=== PATIENT | female | born 1990 | race Caucasian/White ===

== ENCOUNTER 2019-01-24 11:26 | Emergency (ER) | payer OTHER, SELFPAY | END 2019-01-24 13:20 | disposition home or self-care (01) | LOC: ERS 11:26 | DX: K04.7 Periapical abscess without sinus (principal); K02.9 Dental caries, unspecified; J45.909 Unspecified asthma, uncomplicated | CPT/HCPCS: 99281 ==

== ENCOUNTER 2019-01-28 18:26 | Emergency (ER) | payer SELFPAY ==
[2019-01-28] MEDS ORDERED: Dexamethasone 4 MG TAB PO SCH (19:00)
== END 2019-01-28 20:08 | disposition home or self-care (01) ==
LOC: ERS 18:26
DX: J45.901 Unspecified asthma with (acute) exacerbation (principal)
CPT/HCPCS: 94640; J7620; J8540

== ENCOUNTER 2019-05-19 01:46 | Emergency (ER) | payer SELFPAY ==
[2019-05-19] MEDS ORDERED: Ondansetron ODT 4 MG TAB ONE (02:06)
== END 2019-05-19 03:02 | disposition home or self-care (01) ==
LOC: ERS 01:46
DX: R10.84 Generalized abdominal pain (principal); R11.2 Nausea with vomiting, unspecified; R19.7 Diarrhea, unspecified
CPT/HCPCS: 96372; J0500; Q0162

== ENCOUNTER 2020-03-11 03:21 | Emergency (ER) | payer SELFPAY | END 2020-03-11 04:30 | disposition home or self-care (01) | LOC: ERS 03:21 | DX: S61.210A Laceration without foreign body of right index finger without damage to nail, initial encounter (principal); J45.909 Unspecified asthma, uncomplicated; Z79.51 Long term (current) use of inhaled steroids; Z23 Encounter for immunization; W25.XXXA Contact with sharp glass, initial encounter | CPT/HCPCS: 12001; 90471 ==

== ENCOUNTER 2021-02-04 19:29 | Emergency (ER) | payer SELFPAY ==
[2021-02-05 13:05] LABS: SARS-CoV-2 PCR by NAA Not Detected (NotDetected)
== END 2021-02-04 21:18 | disposition home or self-care (01) ==
LOC: ERS 19:29
DX: R05 Cough (principal); R09.81 Nasal congestion; R50.9 Fever, unspecified; Z20.822 Contact with and (suspected) exposure to COVID-19
CPT/HCPCS: 71045; U0003; U0005

== ENCOUNTER 2021-07-01 14:27 | Emergency (ER) | payer SELFPAY ==
[~2021-07-01 14:27] MED LIST: Iopamidol-370 76% 500 ML 1 ML ONE
[2021-07-01] MEDS ORDERED: Morphine 4 MG/ML VIAL ONE (14:52)
[2021-07-01] MEDS ORDERED: Ondansetron PF 4 MG/2 ML Vial ONE ×2 (14:54→15:11)
[2021-07-01] MEDS ORDERED: Ketorolac Tromethamine 30 MG/ML VIAL ONE (15:10)
[2021-07-01 15:21] LABS: #Basophils 0.1 thou/uL (0.0-0.2); #Eosinphils 0.5 thou/uL (0.0-0.7); #Lymphocytes 3.9 thou/uL (1.20-3.40); #Monocytes 0.9 thou/uL (0.11-0.59); #Neutrophils 5.4 thou/uL (1.40-6.50); %Basophils 0.7 % (0.0-1.0); %Eosinophils 4.9 % (0.0-10.0); %Lymphocytes 35.8 % (21.0-51.0); %Monocytes 8.6 % (0.0-10.0); %Neutrophils 49.9 % (42.0-75.0); Hemoglobin 13.2 g/dL (12.0-16.0); Mean Corpuscular HGB CONC 33.3 g/dL (32.0-36.0); Mean Corpuscular Hemoglobin 26.3 pg (27.0-31.0); Mean Platelet Volume 6.7 fL (7.4-10.4); Platelet Count 486 thou/uL (130-400); RBC Distribution Width 13.1 % (11.5-14.5); Red Blood Cell (RBC) Count 5.01 mill/uL (4.20-5.40); White Blood Cell (WBC) Count 10.8 thou/uL (4.8-10.8)
[2021-07-01 15:26] LABS: Pregnancy Test - Urine (BHCG) Negative (Negative)
[2021-07-01 15:27] LABS: BHCG - Serum Negative (NEGATIVE); Pregs Control Background? CLEAR/WHITE (CLR/WHITE); Pregs Control Bar Appear? YES (CONTROL BAR)
[2021-07-01 15:27] LABS: Pregu Control Background? CLEAR/WHITE (CLR/WHITE); Pregu Control Bar Appear? YES (CONTROL BAR); Specific Gravity 1.027 (1.002-1.036)
[2021-07-01 15:30] LABS: Bacteria/HPF 2+ HPF (None Seen); Bilirubin Negative (Negative); Blood, Urine 1+ (Negative); Clarity Turbid (Clear); Glucose, Urine (Dipstick) Normal (Negative); Ketone, Urine Trace mg/dL (Negative); Leukocyte 75 Leu/uL (Negative); Mucous/LPF Rare LPF (<2+); Nitrite Negative (Negative); Protein, Urine (Dipstick) 20 mg/dL (Neg-Trace); Renal Epithelial 0-3 HPF (None Seen); Specific Gravity, Urine 1.027 (1.002-1.036); Urobilinogen Normal mg/dL (Less than 2); pH, Urine 5.5 (5.0-9.0)
[2021-07-01 15:41] LABS: ALT (SGPT) 13 U/L (8-55); AST (SGOT) 12 U/L (5-34); Albumin 4.2 g/dL (3.5-5.0); Alkaline Phosphatase 129 U/L (40-110); Anion Gap 15 mmol/L (10-20); BUN (Urea Nitrogen) 11 mg/dL (7.0-18.7); Bilirubin, Total 0.6 mg/dL (0.2-1.2); Calc. Creatinine Clearance 0 mL/min (70-130); Calcium 10.3 mg/dL (7.8-10.44); Carbon Dioxide 21 mmol/L (22-29); Chloride 105 mmol/L (98-107); Globulin 3.8 g/dL (2.4-3.5); Glucose 154 mg/dL (70-105); Lipase 13 U/L (8-78); Sodium 137 mmol/L (136-145)
== END 2021-07-01 17:30 | disposition home or self-care (01) ==
LOC: ERS 14:27
DX: N20.2 Calculus of kidney with calculus of ureter (principal); J45.909 Unspecified asthma, uncomplicated; Z79.899 Other long term (current) drug therapy
CPT/HCPCS: 36415; 74177; 80053; 81003; 81015; 81025; 83690; 84703; 85025; 96374; 96375; J1885; J2270; J2405; Q9967

== ENCOUNTER 2021-07-03 03:11 | Emergency (ER) | payer SELFPAY ==
[2021-07-03 03:48] LABS: Bacteria/HPF 1+ HPF (None Seen); Bilirubin Negative (Negative); Blood, Urine 2+ (Negative); Clarity Clear (Clear); Glucose, Urine (Dipstick) Normal (Negative); Ketone, Urine Negative (Negative); Leukocyte Negative Leu/uL (Negative); Mucous/LPF 2+ LPF (<2+); Nitrite Negative (Negative); Protein, Urine (Dipstick) Negative (Neg-Trace); Specific Gravity, Urine 1.016 (1.002-1.036); Squamous Epithelial 0-3 HPF (0-3); Urobilinogen Normal mg/dL (Less than 2); WBC/HPF 0-3 HPF (0-3)
[2021-07-03 03:49] LABS: Pregnancy Test - Urine (BHCG) Negative (Negative); Pregu Control Background? CLEAR/WHITE (CLR/WHITE); Pregu Control Bar Appear? YES (CONTROL BAR); Specific Gravity 1.016 (1.002-1.036)
[2021-07-03] MEDS ORDERED: Ketorolac Tromethamine 30 MG/ML VIAL ONE (04:14)
[2021-07-03] MEDS ORDERED: Ondansetron PF 4 MG/2 ML Vial ONE (04:14)
[2021-07-03 04:22] LABS: #Basophils 0.1 thou/uL (0.0-0.2); #Eosinphils 0.4 thou/uL (0.0-0.7); #Lymphocytes 1.9 thou/uL (1.20-3.40); #Monocytes 0.7 thou/uL (0.11-0.59); #Neutrophils 11.7 thou/uL (1.40-6.50); %Basophils 0.4 % (0.0-1.0); %Eosinophils 2.4 % (0.0-10.0); %Lymphocytes 12.8 % (21.0-51.0); %Monocytes 4.6 % (0.0-10.0); %Neutrophils 79.8 % (42.0-75.0); Hemoglobin 11.9 g/dL (12.0-16.0); Mean Corpuscular HGB CONC 32.3 g/dL (32.0-36.0); Mean Corpuscular Hemoglobin 25.8 pg (27.0-31.0); Mean Corpuscular Volume 79.9 fL (78.0-98.0); Mean Platelet Volume 6.9 fL (7.4-10.4); Platelet Count 417 thou/uL (130-400); RBC Distribution Width 12.9 % (11.5-14.5); Red Blood Cell (RBC) Count 4.61 mill/uL (4.20-5.40); White Blood Cell (WBC) Count 14.7 thou/uL (4.8-10.8)
[2021-07-03 04:39] LABS: ALT (SGPT) 12 U/L (8-55); AST (SGOT) 14 U/L (5-34); Albumin 3.8 g/dL (3.5-5.0); Alkaline Phosphatase 114 U/L (40-110); Anion Gap 10 mmol/L (10-20); BUN (Urea Nitrogen) 9 mg/dL (7.0-18.7); Bilirubin, Total 0.2 mg/dL (0.2-1.2); Calc. Creatinine Clearance 0 mL/min (70-130); Calcium 9.2 mg/dL (7.8-10.44); Carbon Dioxide 23 mmol/L (22-29); Chloride 104 mmol/L (98-107); Globulin 3.5 g/dL (2.4-3.5); Glucose 106 mg/dL (70-105); Lipase 17 U/L (8-78); Potassium 3.9 mmol/L (3.5-5.1); Protein, Total 7.3 g/dL (6.0-8.3); Sodium 133 mmol/L (136-145)
== END 2021-07-03 05:51 | disposition home or self-care (01) ==
LOC: ERS 03:11
DX: R07.9 Chest pain, unspecified (principal); R77.8 Other specified abnormalities of plasma proteins; E78.5 Hyperlipidemia, unspecified; E78.00 Pure hypercholesterolemia, unspecified
CPT/HCPCS: 80053; 81003; 81015; 81025; 83690; 85025; 96374; 96375; J1885; J2405

== ENCOUNTER 2022-03-17 12:57 | Emergency (ER) | payer SELFPAY ==
[2022-03-17] MEDS ORDERED: predniSONE 20 MG TAB ONE (13:33)
== END 2022-03-17 16:38 | disposition home or self-care (01) ==
LOC: ERS 12:57
DX: J45.901 Unspecified asthma with (acute) exacerbation (principal)
CPT/HCPCS: 94640; 94760; J7512; J7620

== ENCOUNTER 2023-03-07 21:03 | Emergency (ER) | payer SELFPAY ==
[2023-03-07] MEDS ORDERED: Ipratropium/Albuterol 3 ML NEB ONE (21:10)
[2023-03-07] MEDS ORDERED: predniSONE 20 MG TAB ONE (21:37)
== END 2023-03-07 23:03 | disposition home or self-care (01) ==
LOC: ERS 21:03
DX: J45.909 Unspecified asthma, uncomplicated (principal)
CPT/HCPCS: 93005; J7512; J7620

== ENCOUNTER 2023-04-25 16:43 | Emergency (ER) | payer BC ==
[2023-04-25] MEDS ORDERED: Ipratropium/Albuterol 3 ML NEB ONE ×2 (16:55→17:27)
[2023-04-25] MEDS ORDERED: Magnesium 2 GM/50 ML BAG (IN WATER) ONE (17:02)
[2023-04-25] MEDS ORDERED: Dexamethasone 10 MG/ML VIAL ONE (17:02)
== END 2023-04-25 19:30 | disposition home or self-care (01) ==
LOC: ERS 16:43
DX: J45.901 Unspecified asthma with (acute) exacerbation (principal); J06.9 Acute upper respiratory infection, unspecified
CPT/HCPCS: 71045; 93005; J1100; J3475; J7611; J7620

== ENCOUNTER 2023-06-10 01:11 | Emergency (ER) | payer BC ==
[2023-06-10] MEDS ORDERED: Ipratropium/Albuterol 3 ML NEB ONE (01:18)
[2023-06-10] MEDS ORDERED: methylPREDNISolone Sod Succ/PF 125 MG/2 ML VIAL ONE (01:32)
== END 2023-06-10 02:21 | disposition home or self-care (01) ==
LOC: ERS 01:11
DX: J45.901 Unspecified asthma with (acute) exacerbation (principal)
CPT/HCPCS: 96372; J2930; J7620

== ENCOUNTER 2023-09-03 10:03 | Outpatient (CLI) | payer OTHER | END 2023-09-03 10:04 | disposition home or self-care (01) | LOC: BICULT 10:03 | PROVIDERS: ATTEND Family Medicine | DX: R10.11 Right upper quadrant pain (principal) | CPT/HCPCS: 76705 ==